=== PATIENT | male | born 1980 | race African-American/Black ===

== ENCOUNTER → 2017-11-04 | Outpatient (CLI) | payer OTHER | LOC: M RAD 18:02 | DX: M54.9 Dorsalgia, unspecified (principal) | CPT/HCPCS: 72110 ==

== ENCOUNTER → 2019-07-03 | Outpatient (REF) | payer OTHER ==
[2019-07-03 18:17] LABS: COMPLEMENT C3 119 MG/DL (90-180); COMPLEMENT C4 31 MG/DL (10-40)
[2019-07-03 18:21] LABS: C REACTIVE PROTEIN QUANTITATIV < 0.30 MG/DL (0.00-0.30); CPK CREATINE PHOSPHOKINASE 155 U/L (39-308); URIC ACID 6.9 MG/DL (3.5-7.2)
[2019-07-03 18:31] LABS: TOTAL 25(OH) VITAMIN D 20.1 NG/ML (30.0-100.0)
[2019-07-03 18:42] LABS: HEPATITIS B SURFACE ANTIGEN NEGATIVE (NEGATIVE)
[2019-07-03 19:10] LABS: HEPATITIS C VIRUS ABY INDEX < 0.0 INDEX (<0.8)
[2019-07-07 00:06] LABS: ANGIOTENSIN 1 CONVERTING ENZYM 43 U/L (14-82); Lyme Disease IgG/IgM Antibodie <0.91 ISR (0.00-0.90); Lyme Disease IgM Ab Quantitati <0.80 index (0.00-0.79)
[2019-07-09 14:21] LABS: ANTI DS-DNA AB Negative (Negative); HLA-B27 Negative (.); RNP ANTIBODY 0.5 AI (0.0-0.9); SMITHS ANTIBODY < 0.2 AI (0.0-0.9); SSA SJOGRENS A <0.2 AI (0.0-0.9); SSB SJOGRENS B <0.2 AI (0.0-0.9)
== END ==
LOC: M SFHCRHEU 13:53
PROVIDERS: ATTEND Internal Medicine
DX: M25.50 Pain in unspecified joint (principal)
CPT/HCPCS: 36415; 81374; 82164; 82306; 82550; 84550; 85652; 86140; 86160; 86200; 86225; 86235; 86255; 86431; 86617; 86803; 87340; G0463